=== PATIENT | female | born 1950 | race Caucasian/White ===

== ENCOUNTER 2016-09-13 10:19 | Inpatient (IN) | payer OTHER ==
[~2016-09-13] VITALS: Ht 160 cm; Wt 90.3 kg
--- NOTE | ~2016-09-13 | EKG ---
[address] [place] [address] ELECTROCARDIOGRAM REPORT Name: SOREN HOGAN Room #: 444-P [facility] IN ..#: [id number] Admission: 09/13/16 Attend Phys: Jp Roberson MD Discharge: 09/14/16 Date of : 50 Report #: [id number] THIS REPORT FOR: //name// [facility] Test Date: 2016-09-13 Test Time: 13:49:05 Pat Name: SOREN HOGAN Department: Room: [facility] Gender: F Deli Bakery Clerk: Clare MUÑOZ : 1950 Requested By: Abdelrahman Braga Order Number: [id number] MD: Power Grant Measurements Intervals [place] Rate: 74 P: 80 WY: 132 QRS: 45 QRSD: 94 T: 80 QT: 412 QTc: 457 Interpretive Statements Sinus rhythm Minimal ST depression, inferior leads Compared to ECG 03/04/2014 07:39:31 No significant change was found Electronically Signed On 09-15-2016 10:45:34 CDT by Power Grant [email or web address] <ELECTRONICALLY SIGNED> By: Power Grant MD, [facility] 09/15/16 1045 [id number] [id number] Power Grant MD, [facility] /EPI
--- NOTE | ~2016-09-13 | HC ---
[facility] [place] [address] CONSULTATION Name: SOREN HOGAN Room #: 444-P [facility] IN M.R.#: [id number] Admission: 09/13/16 Attend Phys: Jp Roberson MD Discharge: 09/14/16 Date of : 50 Report #: [id number] THIS REPORT FOR: //name// CC: Jp Roberson Rosa Prado DATE OF SERVICE: 09/13/2016 ATTENDING PHYSICIAN: Jp Roberson MD REASON FOR CONSULTATION: Abdominal pain. HISTORY OF PRESENT ILLNESS: This is a 66-year-old female patient who was initially seen in the [facility] emergency room early this morning with abdominal pain starting around 12:30, worsening around 2:00 a.m. She was seen in the emergency room and was found to have cholelithiasis on imaging studies. She was medically treated and was dismissed home. 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 She was seen back in the emergency room and has been admitted for further evaluation and treatment. She reports a low-grade fever and nausea with dry heaves. I have been asked to see the patient for further evaluation and treatment. PAST MEDICAL HISTORY: Significant for palpitations and pyelonephritis/nephrolithiasis. PAST SURGICAL HISTORY: Includes cardiac ablation and total abdominal hysterectomy with bilateral salpingo-oophorectomy (through a midline incision). HOME MEDICATIONS: Tramadol, Zofran, and simethicone. ALLERGIES: AMOXICILLIN and DOXYCYCLINE cause nausea and vomiting. She is also allergic to TAPE. FAMILY HISTORY: The patient is adopted and is unaware of any significant family history. SOCIAL HISTORY: The patient denies use of tobacco, alcohol, or illicit drugs. She is as of 2 years ago. She is a retired massage therapist. REVIEW OF SYSTEMS: As per history of present illness. In addition, GENERAL: The patient denies unintentional weight loss. Reports low grade fever. Denies chills. HEENT: Denies changes in taste, vision, hearing, or smell. RESPIRATORY: Denies shortness of breath, COPD, or asthma. CARDIOVASCULAR: Denies chest pain or palpitations. [address] [address] CONSULTATION Name: SOREN HOGAN Room #: 444-P [facility] IN ..#: [id number] Admission: 09/13/16 Attend Phys: Jp Roberson MD Discharge: 09/14/16 Date of : 50 Report #: [id number] GASTROINTESTINAL: As per history of present illness. Denies bright red blood per rectum. GENITOURINARY: Denies dysuria, urgency, increased urinary frequency, or hematuria. MUSCULOSKELETAL: Denies myalgia, arthralgia, or arthritis. NEUROLOGIC: Denies headaches, numbness, or tingling. PSYCHIATRIC: She denies depression, anxiety, or suicidal ideations. SKIN/INTEGUMENTARY: Denies new skin lesions, rashes, or moles. ENDOCRINE: Denies polydipsia, polyuria, heat or cold intolerance. HEMATOLOGIC: Denies easy bleeding, bruising, or anemia. All other review of systems is negative. PHYSICAL EXAMINATION: VITAL SIGNS: Temperature 98.0, blood pressure 105/48, pulse 80, respirations 18, and SpO2 97%. GENERAL: This is a 66-year-old female patient who appears uncomfortable. HEENT: Atraumatic, normocephalic with moist mucosal membranes. She has no scleral icterus. NECK: Supple, no appreciable lymphadenopathy. Trachea is midline. CHEST: Clear bilaterally. No crackles or wheezes. CARDIOVASCULAR: Regular rate and rhythm, S1, S2. ABDOMEN: Soft, but tender to palpation, greatest in the right upper quadrant. She has a negative Corona's sign. No rebound or guarding. No palpable masses. Her midline incisional scar is well healed. There are no associated hernias. GENITOURINARY: Normal external female genitalia. EXTREMITIES: No clubbing, cyanosis, or edema. NEUROLOGIC: Cranial nerves 2-12 are grossly intact. PSYCHIATRIC: Normal mood and affect. SKIN/INTEGUMENTARY: No acute inflammatory changes, rashes, or lesions are present. No jaundice. LABORATORY DATA: CBC shows a white blood cell count of 6.5, hemoglobin 14.8, hematocrit 44.5, and platelets 230. Her electrolytes showed a sodium of 140, potassium 4.2, chloride 104, CO2 of 27, BUN 16, creatinine 1.0, and glucose 107. Her total bilirubin, AST and ALT were all within normal limits. Alkaline phosphatase was mildly elevated at 122. Lipase was normal at 130. RADIOLOGIC STUDIES: Abdominal ultrasound revealed layering gallstones within the gallbladder with wall thickness of 2.8 mm and no pericholecystic fluid or common bile duct dilatation. IMPRESSION AND PLAN: This is a relatively otherwise healthy 66-year-old female patient with right upper quadrant abdominal pain. Imaging studies show layering gallstones. We discussed the pathophysiology and natural history of biliary disease as well as the treatment alternatives and surgical options. The patient [address] [address] CONSULTATION Name: SOREN HOGAN Room #: 444-P [facility] IN M.R.#: [id number] Admission: 09/13/16 Attend Phys: Jp Roberson MD Discharge: 09/14/16 Date of : 50 Report #: [id number] would benefit from laparoscopic cholecystectomy with cholangiogram. We discussed the risks, benefits, and expectations of the operation in detail. The patient expressed understanding and wishes to proceed. She will be taken to the operating room with the next earliest availability. I sincerely appreciate the opportunity to participate in the care of this patient and we will leave further recommendations and orders in the electronic medical record as appropriate. Thank you very much. <ELECTRONICALLY SIGNED> By: Abdelrahman Braga MD, FACS 09/15/16 0108 1753 1849 Abdelrahman Braga MD, FACS /nt
--- NOTE | ~2016-09-13 | S ---
[facility] [place] [address] SURGICAL PATH RPT PROCEDURE Name: SOREN HOGAN Room #: 444-P [facility] IN M.R.#: [id number] Admission: 09/13/16 Date of : 50 Discharge: 09/14/16 Report #: [id number] Path Case #: [id number] PATHOLOGY REPORT COLLECTION DATE: 09/13/2016 RECEIVED DATE: 09/16/2016 SUBMITTING PHYS: Dr. Abdelrahman Braga OTHER PHYS: Dr. Jp Prado SPECIMEN(S) RECEIVED: A.Gallbladder * * * * * * * * * * * * FINAL DIAGNOSIS: Gallbladder, cholecystectomy: - Mild chronic cholecystitis. PATHOLOGIST: Yuridia Soto M.D. REPORT ELECTRONICALLY SIGNED BY: Yuridia Soto M.D. DATE/TIME: 09/17/2016 15:27 * * * * * * * * * * * * GROSS PATHOLOGY: Received in formalin labeled "Soren Lopez, gallbladder," is a 8.5 x 2.5 x 1.2 cm, previously opened gallbladder with wrinkled, shiny, pale, bluegreen serosal surfaces. The gallbladder is opened to show a green, velvety, bile-stained mucosa and an average wall thickness of 0.2 cm. Calculi are not present and no masses are noted grossly. Grain Farmworker sections from the body and fundus are submitted along with the proximal margin in cassette A1. (SNA; 09/16/2016) CLINICAL HISTORY: Symptomatic cholelithiasis INITIAL CPT CODE(S): A; 92644 Professional services performed by [facility] at [facility] [address], [place] [address] Technical services performed by [facility] at [address] [place] [address]. [facility] [address] [place] [address] SURGICAL PATH RPT PROCEDURE Name: SOREN HOGAN Room #: 444-P [facility] IN M.R.#: [id number] Admission: 09/13/16 Date of : 50 Discharge: 09/14/16 Report #: [id number] Path Case #: [id number] [facility] [address] [address] PHONE: [phone] DIRECTOR: Yuri Waller M.D. * * * END OF REPORT * * *
--- NOTE | ~2016-09-13 | O ---
[facility] [place] [address] OPERATIVE REPORT Name: SOREN HOGAN Room #: 444-P [facility] IN ..#: [id number] Admission: 09/13/16 Attend Phys: Jp Roberson MD Discharge: 09/14/16 Date of : 50 Report #: [id number] THIS REPORT FOR: //name// CC: Jp Goveaham Benitesniya DATE OF SERVICE: 09/13/2016 SURGEON: Abdelrahman Braga MD AGRICULTURAL ECONOMICS PROFESSOR: Cris Mckinnon NP PREOPERATIVE DIAGNOSIS: Symptomatic cholelithiasis, possible acute cholecystitis. POSTOPERATIVE DIAGNOSES: 1. Symptomatic cholelithiasis with subacute cholecystitis. 2. Intraabdominal adhesions. PROCEDURE: 1. Laparoscopic cholecystectomy with intraoperative cholangiogram. 2. Laparoscopic lysis of adhesions. ANESTHESIA: General endotracheal anesthesia and local anesthetic. ESTIMATED BLOOD LOSS: 10 mL. SPECIMEN: Gallbladder. COMPLICATIONS: None appreciated. INDICATIONS FOR PROCEDURE: This is a 66-year-old female patient who developed acute onset right upper quadrant abdominal pain with nausea and a low-grade fever. She was seen in the emergency room and was found to have a gallstone with no acute inflammatory changes. She was treated medically and dismissed home. While at the pharmacy picking up her medication, she again began to feel the abdominal pain and she returned to the emergency room. She was admitted through the emergency room and on exam, has right upper quadrant abdominal pain with palpation. She presents now for laparoscopic cholecystectomy with cholangiogram. OPERATIVE FINDINGS: Upon entrance into the abdominal cavity, bile stained fluid was present in the right perihepatic space. The gallbladder itself appeared to be chronically inflamed. Intra-abdominal adhesions were present from the patient's previous total abdominal hysterectomy with bilateral salpingo-oophorectomy through a midline incision. There were no associated [facility] [address] [place] [address] OPERATIVE REPORT Name: SOREN HOGAN Room #: 444-P [facility] IN [facility]#: [id number] Admission: 09/13/16 Attend Phys: Jp Roberson MD Discharge: 09/14/16 Date of : 50 Report #: [id number] hernias. Takedown of the adhesions was necessary to place the ports. The gallbladder itself showed chronic inflammatory changes with subacute findings. A small amount of fluid was present within the tissue. The critical view consisting of cystic artery, cystic duct and lower edge of the gallbladder forming a window through which the liver was visible was seen prior to clipping the cystic duct for cholangiogram. The cholangiogram showed contrast flowing freely into the duodenal sweep. No filling defects were seen. The biliary radicles appeared normal. After removal of the gallbladder from the patient's body, it was open on the backtable. A mixed 1 cm gallstone was present. Upon return to the abdominal cavity, the liver bed was hemostatic and the 3 Hemoclips on the cystic duct stump were secured. No other significant intraabdominal pathology was identified. There was no evidence for iatrogenic injury. At the conclusion of the operation, the sponge, needle, and instrument counts were correct. DESCRIPTION OF PROCEDURE IN DETAIL: After the benefits and risks of the procedure were explained to the patient, which include, but are not limited to risks of bleeding, infection, postoperative pain, and postoperative expectations, informed consent was obtained. The patient was identified in the preoperative holding area. She was given IV antibiotics as documented in the chart in line with the SCIP metrics. The patient was taken to the operating room and she was placed in the supine position. SCDs were placed on the patient's bilateral lower extremities and pneumatic compression was initiated. The patient was then given IV sedation and she was intubated without incident. Her abdomen was prepped and draped in the standard sterile fashion. A time-out was then performed to identify the correct patient and procedure. Local anesthetic was infiltrated into the skin and subcutaneous tissue in the right subcostal area where a small transverse incision was made. A 5-mm Visiport was placed intraperitoneally with a 0-degree angled laparoscope. Pneumoperitoneum was achieved with insufflation of carbon dioxide to 15 mmHg. A subcostal 5-mm port was placed under direct visualization after local anesthetic was infiltrated into the skin and subcutaneous tissue and an appropriately sized transverse incision was made. This port was used to take down adhesions from her previous midline total abdominal hysterectomy with bilateral salpingo-oophorectomy. There was no bowel involvement. After clearing enough space at the periumbilical area, local anesthetic was infiltrated into the skin and subcutaneous tissue infraumbilically where a vertical incision was made through an old scar. An 11-mm Visiport was then placed intraperitoneally under direct visualization. A 30-degree angled laparoscope was inserted and used for the remainder of the operation. The patient was placed in the reverse Trendelenburg position, rotated to her left. An additional 5-mm port was placed in the right lateral subcostal area with a similar technique. The dome of the gallbladder was retracted in a cephalad direction. The [address] [address] OPERATIVE REPORT Name: SOREN HOGAN Room #: 444-P [facility] IN [place]#: [id number] Admission: 09/13/16 Attend Phys: Jp Roberson MD Discharge: 09/14/16 Date of : 50 Report #: [id number] gallbladder peritoneum was then scored medially and laterally with the ultrasonic dissector. Dissection was carried out around the cystic artery and cystic duct to identify both structures as the only two structures entering the gallbladder. The cystic duct was clipped at its junction with the neck of the gallbladder. A ductotomy was then created. A cholangiocatheter was inserted and cholangiogram performed with findings as noted above. The cholangiocatheter was then removed and Hemoclips times 3 were placed on the cystic duct distal to the ductotomy site. The duct was divided with the ultrasonic dissector at the ductotomy site. A good seal was present on the duct. The cystic artery was divided with the ultrasonic dissector with good hemostasis as well. The gallbladder was then dissected out of the liver bed without entrance into the gallbladder or liver bed. The gallbladder was placed in an Endopouch and removed through the infraumbilical port site fascial opening. An 0 PDS suture was placed to approximate the fascia. This was tied under direct visualization to ensure no incorporation of intraabdominal content. The liver bed was reexamined for hemostasis. There was good hemostasis within the liver bed and throughout the abdominal cavity. The abdominal cavity was irrigated and suctioned and return of all drainage ran clear. The abdominal cavity was then desufflated and the ports were removed. Interrupted subcuticular 4-0 Monocryl sutures and Dermabond were used to close the skin incisions. The patient tolerated the procedure well. She was awakened, extubated, and taken to the recovery room in stable condition with no apparent intraoperative complications. <ELECTRONICALLY SIGNED> By: Abdelrahman Braga MD, FACS 09/15/16 0108 [id number] Abdelrahman Braga MD, FACS /nt
[2016-09-13 10:19] VITALS: BP 138/61
[~2016-09-13 10:19] MED LIST: ALEVE220 M1; ASPIRIN325 PO; ATENOLOL 25 MG25 M1; BACTRIM DS TAB1 EACH PO; GAS RELIEF 8080 MG PO; LOW DOSE ASPIRI81 M1 PO; NORCO 5-325 TA1 EACH PO; ONDANSETRON HCL4 M2 PO; PEPCID40 MG PO; PREMARIN; ULTRAM 50MG TAB50 MG PO; ZOFRAN 4 MG ORAL4 MG PO; ZOFRAN ODT4 MG PO
[2016-09-13 10:56] LABS: ABSOLUTE NEUTROPHILS 5.1 thou/uL (1.4-8.2); BASOPHILS 0.5 % (0.0-2.0); EOSINOPHILS 0.9 % (0.0-3.0); HEMATOCRIT 44.5 % (37.0-47.0); HEMOGLOBIN 14.8 gm/dL (12.0-15.0); LYMPHOCYTES 14.7 % (24.0-44.0); MANUAL DIFF NO; MCH 29.2 pg (26.0-34.0); MCHC 33.2 g/dL (28.0-37.0); MCV 87.9 fL (80.0-100.0); MONOCYTES 5.8 % (1.0-8.0); PLATELET COUNT 230 thou/uL (150-400); POLYS 78.1 % (36.0-66.0); RBC 5.07 mil/uL (4.20-5.00); RDW 13.8 % (10.5-14.5); WBC 6.5 thou/uL (4.0-11.0)
[2016-09-13 10:58] LABS: CALCIUM 9.4 mg/dL (8.5-10.1); POTASSIUM 4.2 mmol/L (3.5-5.1)
[2016-09-13 11:02] LABS: ALBUMIN 4.3 g/dL (3.4-5.0); DIRECT BILIRUBIN 0.1 mg/dL (<0.1-0.3); TOTAL BILIRUBIN 0.7 mg/dL (<0.1-1.0); TOTAL PROTEIN 7.4 g/dL (6.4-8.2)
[2016-09-13 12:03] VITALS: BP 105/48
[2016-09-13 12:10] VITALS: BP 105/48
[2016-09-13 18:45] VITALS: BP 123/48
[2016-09-13 19:15] VITALS: BP 110/52
[2016-09-13 20:02] VITALS: BP 118/51
[2016-09-14 04:26] LABS: HEMATOCRIT 35.2 % (37.0-47.0); MCH 29.4 pg (26.0-34.0); MCHC 34.1 g/dL (28.0-37.0); MCV 86.3 fL (80.0-100.0); RBC 4.08 mil/uL (4.20-5.00); RDW 13.9 % (10.5-14.5); WBC 4.5 thou/uL (4.0-11.0)
[2016-09-14 04:42] LABS: CALCIUM 8.3 mg/dL (8.5-10.1); CREATININE 0.8 mg/dL (0.6-1.0); POTASSIUM 3.9 mmol/L (3.5-5.1)
[2016-09-14 04:51] VITALS: BP 108/51
[2016-09-14 08:00] VITALS: BP 103/51
[2016-09-14 11:48] VITALS: BP 103/51
== END 2016-09-14 13:25 | disposition home or self-care (01) | DRG 419 ==
LOC: ER 10:19 → EROBS 11:49 → 4S 13:16
PROVIDERS: Emergency Medicine; Surgery
PROC: BF121ZZ Fluoroscopy of Gallbladder using Low Osmolar Contrast (ICD-10-PCS; principal; 2016-09-13)
PROC: 0FT44ZZ Resection of Gallbladder, Percutaneous Endoscopic Approach (ICD-10-PCS; principal; 2016-09-13)
DX: K80.00 Calculus of gallbladder with acute cholecystitis without obstruction (principal); E78.5 Hyperlipidemia, unspecified; K66.0 Peritoneal adhesions (postprocedural) (postinfection); Z90.710 Acquired absence of both cervix and uterus; Z88.1 Allergy status to other antibiotic agents; Z87.442 Personal history of urinary calculi; Z90.722 Acquired absence of ovaries, bilateral; Z79.899 Other long term (current) drug therapy
CPT/HCPCS: 10195; 50010; 50101; 50249; 50411; 50555; 50558; 50962; 51489; 51975; 52265; 53307; 54022; 54118; 55245; 55317; 56462; 56525; 56526; 62110; 62900; 70005

== ENCOUNTER 2016-09-19 06:46 | Emergency (ER) | payer OTHER ==
[~2016-09-19] VITALS: Ht 160 cm; Wt 53.1 kg
[2016-09-19 07:21] LABS: ABSOLUTE NEUTROPHILS 3.9 thou/uL (1.4-8.2); BASOPHILS 0.7 % (0.0-2.0); EOSINOPHILS 1.5 % (0.0-3.0); HEMATOCRIT 42.5 % (37.0-47.0); HEMOGLOBIN 14.4 gm/dL (12.0-15.0); LYMPHOCYTES 19.8 % (24.0-44.0); MCH 29.2 pg (26.0-34.0); MCHC 33.9 g/dL (28.0-37.0); MCV 86.4 fL (80.0-100.0); PLATELET COUNT 249 thou/uL (150-400); RBC 4.92 mil/uL (4.20-5.00); RDW 13.4 % (10.5-14.5); WBC 5.6 thou/uL (4.0-11.0)
[2016-09-19 07:22] LABS: MANUAL DIFF NO
[2016-09-19 07:28] LABS: CALCIUM 9.2 mg/dL (8.5-10.1); CREATININE 0.9 mg/dL (0.6-1.0); POTASSIUM 3.5 mmol/L (3.5-5.1)
[2016-09-19 07:33] LABS: ALBUMIN 3.8 g/dL (3.4-5.0); DIRECT BILIRUBIN 0.1 mg/dL (<0.1-0.3); TOTAL BILIRUBIN 0.6 mg/dL (<0.1-1.0); TOTAL PROTEIN 7.2 g/dL (6.4-8.2)
[2016-09-19] MEDS ORDERED: ZOFRAN ODT4 MG PO (09:15)
== END 2016-09-19 09:43 | disposition home or self-care (01) ==
LOC: ER 06:46
PROVIDERS: Emergency Medicine
DX: R19.7 Diarrhea, unspecified (principal); R11.2 Nausea with vomiting, unspecified; G89.18 Other acute postprocedural pain; Z90.710 Acquired absence of both cervix and uterus; Z90.49 Acquired absence of other specified parts of digestive tract; Z88.1 Allergy status to other antibiotic agents

== ENCOUNTER 2016-09-23 15:02 | Inpatient (IN) | payer OTHER ==
[~2016-09-23] VITALS: Ht 160 cm; Wt 53.1 kg
[2016-09-23 15:03] VITALS: BP 128/68
[2016-09-23] MEDS ORDERED: LOPERAMIDE 2 MG2 M1 PO (15:22)
[2016-09-23 15:47] LABS: ABSOLUTE NEUTROPHILS 5.5 thou/uL (1.4-8.2); BASOPHILS 0.3 % (0.0-2.0); EOSINOPHILS 0.5 % (0.0-3.0); HEMATOCRIT 40.8 % (37.0-47.0); LYMPHOCYTES 15.6 % (24.0-44.0); MCH 29.1 pg (26.0-34.0); MCHC 34.4 g/dL (28.0-37.0); MCV 84.6 fL (80.0-100.0); MONOCYTES 7.8 % (1.0-8.0); PLATELET COUNT 286 thou/uL (150-400); POLYS 75.8 % (36.0-66.0); RBC 4.82 mil/uL (4.20-5.00); RDW 13.2 % (10.5-14.5); WBC 7.3 thou/uL (4.0-11.0)
[2016-09-23 15:51] LABS: MANUAL DIFF NO
[2016-09-23 15:55] LABS: CALCIUM 9.5 mg/dL (8.5-10.1); CREATININE 0.9 mg/dL (0.6-1.0); POTASSIUM 3.8 mmol/L (3.5-5.1)
[2016-09-23 16:01] LABS: ALBUMIN 3.8 g/dL (3.4-5.0); TOTAL BILIRUBIN 0.6 mg/dL (<0.1-1.0); TOTAL PROTEIN 7.1 g/dL (6.4-8.2)
[2016-09-23 17:48] VITALS: BP 137/63
[2016-09-23 18:50] VITALS: BP 117/65; BP 133/65
[2016-09-23 23:25] VITALS: BP 132/59
[2016-09-24 01:39] LABS: URINE BILIRUBIN NEGATIVE (Negative); URINE BLOOD TRACE (Negative); URINE COLOR YELLOW; URINE GLUCOSE-RANDOM* NEGATIVE (Negative); URINE KETONES 1+ (Negative); URINE LEUKOCYTES-REFLEX NEGATIVE (Negative); URINE PROTEIN (DIPSTICK) NEGATIVE (Negative); URINE SPECIFIC GRAVITY 1.015 (1.003-1.035)
[2016-09-24 04:04] LABS: CALCIUM 8.9 mg/dL (8.5-10.1); CREATININE 0.8 mg/dL (0.6-1.0); POTASSIUM 3.7 mmol/L (3.5-5.1)
[2016-09-24 04:11] VITALS: BP 145/62
[2016-09-24 07:47] VITALS: BP 127/59
[2016-09-24 15:47] VITALS: BP 121/55
[2016-09-24 19:28] VITALS: BP 110/55
[2016-09-25 02:09] LABS: ABSOLUTE NEUTROPHILS 3.6 thou/uL (1.4-8.2); BASOPHILS 0.5 % (0.0-2.0); EOSINOPHILS 0.8 % (0.0-3.0); HEMOGLOBIN 12.4 gm/dL (12.0-15.0); LYMPHOCYTES 18.8 % (24.0-44.0); MCH 29.4 pg (26.0-34.0); MCHC 34.6 g/dL (28.0-37.0); MCV 85.2 fL (80.0-100.0); MONOCYTES 11.6 % (1.0-8.0); PLATELET COUNT 241 thou/uL (150-400); POLYS 68.3 % (36.0-66.0); RBC 4.22 mil/uL (4.20-5.00); RDW 13.4 % (10.5-14.5); WBC 5.3 thou/uL (4.0-11.0)
[2016-09-25 02:12] LABS: MANUAL DIFF NO
[2016-09-25 02:24] LABS: ALBUMIN 2.9 g/dL (3.4-5.0); CALCIUM 8.5 mg/dL (8.5-10.1); CREATININE 0.7 mg/dL (0.6-1.0); MAGNESIUM 1.7 mg/dL (1.8-2.4); PHOSPHORUS 3.4 mg/dL (2.5-4.9); POTASSIUM 3.5 mmol/L (3.5-5.1)
[2016-09-25 03:13] VITALS: BP 127/53
[2016-09-25 08:00] VITALS: BP 123/48
[2016-09-25 16:00] VITALS: BP 130/57
[2016-09-25 19:10] VITALS: BP 137/57
[2016-09-26 04:50] VITALS: BP 127/55
[2016-09-26 06:06] LABS: ABSOLUTE NEUTROPHILS 3.6 thou/uL (1.4-8.2); BASOPHILS 0.4 % (0.0-2.0); EOSINOPHILS 1.5 % (0.0-3.0); HEMOGLOBIN 12.6 gm/dL (12.0-15.0); LYMPHOCYTES 16.1 % (24.0-44.0); MCH 29.5 pg (26.0-34.0); MCV 84.3 fL (80.0-100.0); MONOCYTES 11.5 % (1.0-8.0); PLATELET COUNT 236 thou/uL (150-400); POLYS 70.5 % (36.0-66.0); RBC 4.27 mil/uL (4.20-5.00); RDW 13.3 % (10.5-14.5); WBC 5.1 thou/uL (4.0-11.0)
[2016-09-26 06:10] LABS: MANUAL DIFF NO
[2016-09-26 06:21] LABS: CALCIUM 8.6 mg/dL (8.5-10.1); CREATININE 0.6 mg/dL (0.6-1.0)
[2016-09-26 06:25] LABS: POTASSIUM 2.8 mmol/L (3.5-5.1)
[2016-09-26 08:58] VITALS: BP 128/42
[2016-09-26 19:15] VITALS: BP 105/42
[2016-09-27 06:20] LABS: ALBUMIN 2.5 g/dL (3.4-5.0); CALCIUM 8.3 mg/dL (8.5-10.1); CREATININE 0.7 mg/dL (0.6-1.0); MAGNESIUM 2.1 mg/dL (1.8-2.4); PHOSPHORUS 3.2 mg/dL (2.5-4.9); POTASSIUM 3.4 mmol/L (3.5-5.1)
[2016-09-27 07:27] VITALS: BP 117/51
[2016-09-27 17:11] VITALS: BP 115/89
[2016-09-27 19:30] VITALS: BP 120/53
[2016-09-28 04:00] VITALS: BP 106/58
[2016-09-28 08:00] VITALS: BP 112/41
[2016-09-28] MEDS ORDERED: PREVALITE PACKE1 PKT PO (09:22)
[2016-09-28] MEDS ORDERED: ACIDOPHILUS1 EAC4 PO (09:22)
[2016-09-28 09:35] VITALS: BP 106/58
== END 2016-09-28 10:21 | disposition home or self-care (01) | DRG 388 ==
LOC: ER 15:02 → EROBS 17:29 → 5S 17:29 → 4S 09-27 18:01
PROVIDERS: Hospitalist; Internal Medicine Gastroenterology; Physician Assistant; Surgery
DX: K56.60 Unspecified intestinal obstruction (principal); E43 Unspecified severe protein-calorie malnutrition; K58.9 Irritable bowel syndrome, unspecified; E87.6 Hypokalemia; E83.42 Hypomagnesemia; Z53.29 Procedure and treatment not carried out because of patient's decision for other reasons; Z88.1 Allergy status to other antibiotic agents; Z68.20 Body mass index [BMI] 20.0-20.9, adult; Z90.710 Acquired absence of both cervix and uterus; Z90.49 Acquired absence of other specified parts of digestive tract; Z79.82 Long term (current) use of aspirin
CPT/HCPCS: 10086; 10195

== ENCOUNTER 2020-10-17 16:56 | Emergency (ER) | payer OTHER ==
[~2020-10-17] VITALS: Ht 157.5 cm; Wt 52.2 kg
[~2020-10-17 16:56] MED LIST changes: +ACIDOPHILUS1 EAC4 PO; +LOPERAMIDE 2 MG2 M1 PO; +PREVALITE PACKE1 PKT PO
[2020-10-17 17:16] LABS: URINE BILIRUBIN NEGATIVE (Negative); URINE BLOOD TRACE (Negative); URINE CLARITY CLEAR; URINE COLOR YELLOW; URINE GLUCOSE-RANDOM* NEGATIVE (Negative); URINE KETONES NEGATIVE (Negative); URINE LEUKOCYTES-REFLEX NEGATIVE (Negative); URINE NITRITE-REFLEX NEGATIVE (Negative); URINE PROTEIN (DIPSTICK) NEGATIVE (Negative); URINE UROBILINOGEN 0.2 E.U./dl (0.2-1.0)
[2020-10-17 17:30] LABS: ABSOLUTE NEUTROPHILS 6.4 thou/uL (1.4-8.2); BASOPHILS 0.4 % (0.0-2.0); EOSINOPHILS 1.6 % (0.0-3.0); HEMATOCRIT 39.4 % (37.0-47.0); LYMPHOCYTES 12.4 % (24.0-44.0); MCH 29.3 pg (26.0-34.0); MCHC 33.1 g/dL (28.0-37.0); MCV 88.6 fL (80.0-100.0); MONOCYTES 9.1 % (1.0-8.0); PLATELET COUNT 190 thou/uL (150-400); POLYS 76.5 % (36.0-66.0); RBC 4.44 mil/uL (4.20-5.00); RDW 13.6 % (10.5-14.5); WBC 8.4 thou/uL (4.0-11.0)
[2020-10-17 17:37] LABS: CALCIUM 8.8 mg/dL (8.5-10.1); CREATININE 0.9 mg/dL (0.6-1.0); POTASSIUM 4.1 mmol/L (3.5-5.1)
[2020-10-17 17:43] LABS: ALBUMIN 3.6 g/dL (3.4-5.0); DIRECT BILIRUBIN 0.1 mg/dL (<0.1-0.2); TOTAL BILIRUBIN 0.7 mg/dL (0.2-1.0); TOTAL PROTEIN 6.8 g/dL (6.4-8.2)
[2020-10-17] MEDS ORDERED: HYDROCODON-ACE1 EAC7 PO (19:30)
[2020-10-17] MEDS ORDERED: FLAGYL500 M1 PO (19:30)
[2020-10-17] MEDS ORDERED: CIPRO500 M1 PO (19:30)
[2020-10-17 19:56] VITALS: BP 133/66
[2020-10-18] MEDS ORDERED: KRISTALOSE20 GM PO (13:30)
== END 2020-10-17 19:59 | disposition home or self-care (01) ==
LOC: ER 16:56
PROVIDERS: Nurse Practitioner
DX: K57.32 Diverticulitis of large intestine without perforation or abscess without bleeding (principal); Z20.822 Contact with and (suspected) exposure to COVID-19; R10.31 Right lower quadrant pain; Z90.710 Acquired absence of both cervix and uterus; Z90.89 Acquired absence of other organs; Z90.49 Acquired absence of other specified parts of digestive tract; Z79.899 Other long term (current) drug therapy; Z88.1 Allergy status to other antibiotic agents; Z88.0 Allergy status to penicillin

== ENCOUNTER 2020-10-18 09:34 | Emergency (ER) | payer OTHER ==
[~2020-10-18] VITALS: Ht 157.5 cm; Wt 53.5 kg
[~2020-10-18 09:34] MED LIST changes: +CIPRO500 M1 PO; +FLAGYL500 M1 PO; +HYDROCODON-ACE1 EAC7 PO
[2020-10-18 09:35] VITALS: BP 107/56
[2020-10-18 10:24] LABS: ABSOLUTE NEUTROPHILS 8.5 thou/uL (1.4-8.2); BASOPHILS 0.2 % (0.0-2.0); EOSINOPHILS 0.4 % (0.0-3.0); HEMATOCRIT 37.9 % (37.0-47.0); HEMOGLOBIN 12.6 gm/dL (12.0-15.0); LYMPHOCYTES 5.1 % (24.0-44.0); MCH 29.5 pg (26.0-34.0); MCHC 33.3 g/dL (28.0-37.0); MCV 88.5 fL (80.0-100.0); MONOCYTES 7.2 % (1.0-8.0); PLATELET COUNT 167 thou/uL (150-400); POLYS 87.1 % (36.0-66.0); RBC 4.28 mil/uL (4.20-5.00); RDW 13.7 % (10.5-14.5); WBC 9.7 thou/uL (4.0-11.0)
[2020-10-18 10:33] LABS: CREATININE 0.8 mg/dL (0.6-1.0); POTASSIUM 4.1 mmol/L (3.5-5.1)
[2020-10-18 10:39] LABS: ALBUMIN 3.4 g/dL (3.4-5.0); DIRECT BILIRUBIN 0.2 mg/dL (<0.1-0.2); TOTAL BILIRUBIN 0.9 mg/dL (0.2-1.0); TOTAL PROTEIN 6.7 g/dL (6.4-8.2)
[2020-10-18] MEDS ORDERED: KRISTALOSE20 GM PO (13:30)
== END 2020-10-18 13:31 | disposition home or self-care (01) ==
LOC: ER 09:34
PROVIDERS: Emergency Medicine
DX: K57.32 Diverticulitis of large intestine without perforation or abscess without bleeding (principal); K59.00 Constipation, unspecified; Z90.710 Acquired absence of both cervix and uterus; Z90.89 Acquired absence of other organs; Z90.49 Acquired absence of other specified parts of digestive tract; Z79.899 Other long term (current) drug therapy; Z88.0 Allergy status to penicillin; Z88.1 Allergy status to other antibiotic agents